=== PATIENT | male | born 1995 | race Two or more races ===

== ENCOUNTER 2018-04-22 02:08 | Emergency (ER) ==
[2018-04-22 02:20] VITALS: BP 124/81; TEMP 98.6; BMI 27.2
[2018-04-22] MEDS ORDERED: SODIUM CHLORIDE 1,000 ML IV STA ×2 (02:34)
[2018-04-22] MEDS ORDERED: PHENERGAN 25 MG/ML VIAL 25 MG in SODIUM CHLORIDE 50 ML IV STA (02:35)
[2018-04-22] MEDS ORDERED: ZOFRAN 4 MG/2 ML IVP STA (02:35)
[2018-04-22] MEDS ORDERED: PHENERGAN 25 MG/ML VIAL ONE (02:40)
--- NOTE | 2018-04-22 03:11 | CT ---
EXAM: CT scan abdomen pelvis without contrast HISTORY: Vomiting COMPARISON: None. FINDINGS: Contiguous axial images obtained through the abdomen pelvis without contrast utilizing 3-m m collimation. Sagittal and coronal reconstructions were imaged and reviewed.. There is calcified g ranuloma within the right middle lobe. There is a pectus excavatum deformity.. The gallbladder is f luid filled without cholelithiasis.. The spleen. Normal in size. The liver pancreas adrenal glands have normal unenhanced CT appearance. Kidneys morphologically normal. The abdominal aorta is dudley l course and caliber. There is normal appendix.. There are prominent air and fluid filled loops of small bowel within the left abdomen which may represent ileus versus gastroenteritis. There is a fat -containing umbilical hernia. There is no free fluid or inflammatory changes. The bladder is decomp ressed and not well evaluated. IMPRESSION: Prominent small bowel within the left abdomen which may be related to ileus versus gastroenteritis. No evidence of free fluid or inflammatory changes. Normal appendix. Fat-containing umbilical hernia
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
== END 2018-04-22 05:48 | disposition home or self-care (01) ==
LOC: ED 02:08
DX: K52.9 Noninfective gastroenteritis and colitis, unspecified (principal); F17.210 Nicotine dependence, cigarettes, uncomplicated
CPT/HCPCS: 36415; 80053; 81001; 82150; 85025; 87502; 87651; 96361; 96365; 96375; 99283

== ENCOUNTER 2018-07-03 14:34 | Emergency (ER) ==
[2018-07-03 14:37] VITALS: BP 125/83; TEMP 99.5; BMI 26.4
[2018-07-03] MEDS ORDERED: DEXTROSE 5%-1/2NS IV SOLUTION 1,000 ML IV STA (14:51)
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
[2018-07-03] MEDS ORDERED: ZOFRAN 4 MG/2 ML IVP STA (15:10)
[2018-07-03] MEDS ORDERED: PHENERGAN 25 MG/ML VIAL 25 MG in SODIUM CHLORIDE 50 ML IV STA (16:08)
[2018-07-03] MEDS ORDERED: PHENERGAN 25 MG/ML VIAL ONE (16:14)
== END 2018-07-03 17:29 | disposition home or self-care (01) ==
LOC: ED 14:34
DX: R06.9 Unspecified abnormalities of breathing (principal); R11.10 Vomiting, unspecified; R19.7 Diarrhea, unspecified; R50.9 Fever, unspecified; K52.9 Noninfective gastroenteritis and colitis, unspecified
CPT/HCPCS: 36415; 80048; 85025; 96361; 96365; 96375; 99283